=== PATIENT | male | born 1990 | race Caucasian/White ===

== ENCOUNTER 2018-01-12 15:52 | Emergency (ER) | payer OTHER ==
[~2018-01-12] VITALS: Ht 177.8 cm; Wt 81.7 kg
[2018-01-12] MEDS ORDERED: SSD CREAM 1% 5050 GM TOP (16:02)
[2018-01-12 16:14] VITALS: BP 135/60
== END 2018-01-12 16:15 | disposition home or self-care (01) ==
LOC: M.ERS 15:52
DX: T22.111A Burn of first degree of right forearm, initial encounter (principal); T31.0 Burns involving less than 10% of body surface; X12.XXXA Contact with other hot fluids, initial encounter; Y93.89 Activity, other specified; Y92.89 Other specified places as the place of occurrence of the external cause; Y99.8 Other external cause status